=== PATIENT | female | born 1995 | race Caucasian/White ===

== ENCOUNTER 2022-06-27 12:37 | Emergency (ER) | payer MEDICAID ==
[~2022-06-27] VITALS: Ht 160 cm; Wt 84.6 kg
[2022-06-27 12:47] VITALS: BP 115/73
--- NOTE | 2022-06-27 12:59 | NUR ---
BIB SELF C/O 10/10 LOWER ABDOMINAL PAIN , URINARY BURNING SENSATIONX 3 DAYS. DENIES N/V/D; SKIN IS PINK/WARM/DRY; AAOX4 WITH EVEN AND STEADY GAIT; LUNGS CLEAR BL; HR EVEN AND REGULAR; PT DENIES ANY FEVER, CP, SOB, OR COUGH AT THIS TIME; PATIENT POSITIONED FOR COMFORT; HOB ELEVATED; BEDRAILS UP X1; BED DOWN. ER MD MADE AWARE OF PT STATUS.
[2022-06-27] MEDS ORDERED: CEPH-588 PO (13:28)
--- NOTE | 2022-06-27 13:41 | NUR ---
Patient discharged with v/s stable. Written and verbal after care instructions given and explained. Patient alert, oriented and verbalized understanding of instructions. Ambulatory with steady gait. All questions addressed prior to discharge. ID band removed. Patient advised to follow up with PMD. Rx of CEPHALEXIN given. Opportunity to ask questions provided and answered.
--- NOTE | 2022-06-27 13:42 | NUR ---
Chart checked and completed. The patient's care was reviewed and supervised by Antonia Bassett RN.
== END 2022-06-27 13:41 | disposition home or self-care (01) ==
LOC: MED 12:37
DX: N39.0 Urinary tract infection, site not specified (principal)
CPT/HCPCS: 81002; 81025; 99283